=== PATIENT | male | born 1955 | race Caucasian/White ===

== ENCOUNTER → 2016-09-26 | Outpatient (CLI) | payer BC ==
[~2016-09-26] MED LIST: ASPI81TA28 PO; ATOR10TA88 PO; ATV/1 PO; CETI10TA84 PO; CYCL10TA6 PO; DICL-201 PO; HYDR-5688 PO; IBUP-1050 PO; KETO10TA PO; LOSA50TA54 PO; NAPR-1169 PO; OXYC-57 PO
--- NOTE | 2016-09-26 10:40 | DIAGNOSTIC IMAGING REPORT ---
MRI OF THE LEFT KNEE CLINICAL HISTORY: Left knee pain. COMPARISON STUDY: No priors. TECHNIQUE: MRI of the left. knee was performed utilizing proton density, T1, and T2-weighted sequences in the axial, sagittal, coronal planes. IV contrast was not administered for this examination. Note that interpretation is suboptimal without plain film correlate. FINDINGS: Menisci: There is extensive degenerative tearing/maceration involving the body and posterior horn of the medial meniscus. The medial meniscus is slightly extruded. No flipped fragment is identified. The lateral meniscus is intact. Ligaments: The anterior and posterior cruciate ligaments are intact. The medial and lateral collateral ligaments are within normal limits. Extensor mechanism: The extensor mechanism is intact. Hoffa's fat pad is normal in appearance. There is nonspecific edema within the suprapatellar fat pad. Articular cartilage and bone: There is mild (less than 50%) degenerative thinning of the articular cartilage along the weightbearing surface in the medial compartment. No full-thickness cartilage loss is identified. Reactive marrow edema seen peripherally within the medial femoral condyle and the medial tibial plateau. The articular cartilage within the lateral compartment appears maintained. There is moderate chondromalacia patella, with near complete cartilage loss at the patellar apex and along the lateral patellar facet. There is mild reactive marrow edema within the lateral patellar facet with small foci of subchondral cystic change. There is mild narrowing of the articular cartilage in the underlying femoral trochlea. Joint effusion: There is a small joint effusion. Soft tissues: The musculature surrounding the knee joint is normal in bulk and signal intensity. A pulsatile cyst measures approximately 5 cm. IMPRESSION: 1. Extensive degenerative tearing/maceration is seen involving the body and posterior horn of the medial meniscus. 2. There is mild degenerative thinning of the articular cartilage in the medial compartment with reactive marrow edema seen peripherally involving the medial tibial plateau and the medial femoral condyle. 3. Moderate chondromalacia patella. 4. Small joint effusion and popliteal cyst. 5. The cruciate ligaments, the collateral ligaments, and the lateral meniscus are intact. 6. There is nonspecific edema within the suprapatellar fat pad. This has been described in the quadriceps fat pad impingement syndrome. Clinical correlation will be required. Electronically signed by: Guru Durbin M.D. 09/26/2016 10:39 AM Dictated Date/Time: 09/26/2016 10:32 AM
== END | disposition home or self-care (01) ==
LOC: C.MRIBC 09:35
PROVIDERS: ATTEND Orthopaedic Surgery Sports Medicine
DX: M17.12 Unilateral primary osteoarthritis, left knee (principal); M22.42 Chondromalacia patellae, left knee

== ENCOUNTER → 2016-10-23 | Day surgery (SDC) | payer BC ==
[2016-10-11 14:00] VITALS: Ht 180.3 cm; Wt 88.6 kg
[~2016-10-23] VITALS: Ht 180.3 cm; Wt 88.6 kg
[~2016-10-23] MED LIST changes: +ATOR10TA82 PO; -ATOR10TA88 PO; +ATROPINE SULFATE 0.1 MG/ML 5ML SYR IV PRN; +CEFAZOLIN 2000 MG/60 ML D5W IV SCH; -CETI10TA84 PO; +CLINDAMYCIN 900 MG/106 ML D5W IV ONE; +CLINDAMYCIN 900MG IV SCH; +DEXAMETHASONE SOD INJ 4 MG/ML VIAL ONE; +EpHEDrine SULFATE INJ 50 MG/ML AMP IV PRN; +EpINEphrine INJ 1MG/ML AMP 1 MG/ML AMP ONE; +FENTANYL CITRATE INJ 50 MCG/1 ML 2 ML VIAL IV PRN; +FENTANYL CITRATE INJ 50 MCG/1 ML 2 ML VIAL ONE; -HYDR-5688 PO; +KETOROLAC TROMETHAMINE 30 MG/ML VIAL ONE; +LACTATED RINGER'S 1000ML 1,000 ML IV SCH; +LIDOCAINE HCL 2% 2 ML VIAL (20MG/ML) ONE; +MIDAZOLAM HCL 1 MG/ML 2ML VIAL ONE; +ONDANSETRON INJ 2 MG/ML 2 ML VIAL IV PRN; +ONDANSETRON INJ 2 MG/ML 2 ML VIAL ONE; +OXYCODONE/ACETAMINOPHEN 5-325 TAB PO PRN; +PROPOFOL IV EMULSION 10 MG/ML 20 ML VIAL IV ONE; +ROPIVACAINE 0.5% 5 MG/ML 30 ML VIAL ONE; +SODIUM CHLORIDE 0.9% 1000ML 1,000 ML IV SCH
--- NOTE | 2016-10-23 12:15 | History & Physical Bridge - SC ---
H&P Re-Evaluation Bridge Note: I have examined the patient, reviewed the History & Physical and in the interval since the performance of the History & Physical I have noted the following changes of clinical significance: No changes noted
--- NOTE | 2016-10-23 13:08 | [facility] Post Operative Brief Note ---
Immediate Operative Summary Operative Date Oct 23, 2016. Pre-Operative Diagnosis Left Knee Medial Meniscal Tear and Osteoarthritis Post-Operative Diagnosis Same Procedure(s) Performed Left Knee Arthroscopy, Partial Medial Meniscectomy, Chondroplasty of patella Surgeon Dr. Cortes Livestock [employer]cker Surgeon(s) Tahir Perla PA-C Estimated Blood Loss Minimal Findings Medial Meniscus Tear + DJD Specimens None Anesthesia General Complication(s) None Disposition Recovery Room / PACU
--- NOTE | 2016-10-23 13:09 | Discharge Instructions-SurgCtr ---
Discharge Instructions Date of Service Oct 23, 2016. Visit Reason for Visit: Left Knee Medial Meniscal Tear, Djd Discharge Discharge Diagnosis / Problem: left knee medial meniscus tear Discharge Goals Goal(s): Decrease discomfort, Improve function, Therapeutic intervention Activity Recommendations Activity Limitations: per Instructions/Follow-up section Weightbearing Status: Left weightbearing (as tolerated) Anesthesia . Post Anesthesia Instructions: If you have had General Anesthesia or IV Sedation: * Do not drive today. * Resume driving when surgeon permits. * Do not make important decisions or sign legal documents today. * Call surgeon for: 1. Temperature elevations greater than 101 degrees F. 2. Uncontrollable pain. 3. Excessive bleeding. 4. Persistent nausea and vomiting. 5. Medication intolerance (nausea, vomiting or rash). * For nausea and vomiting use only clear liquids such as: tea, soda, bouillon until nausea subsides, then gradually increase diet as tolerated. * If you have any concerns or questions, call your surgeon's office. If physician is unavailable and it is an emergency, call 911 or go to the nearest emergency room. . Instructions / Follow-Up Instructions / Follow-Up MEDICATIONS: * Resume previous medications unless instructed otherwise by your surgeon. * Always take pain medication on a full stomach or with food to avoid upset stomach. * Do not drink alcohol or drive while taking narcotics. * Tylenol may be taken if narcotic not needed. May restart diclofenac when finished taking toradol SPECIAL CARE INSTRUCTIONS: __ None _x_ Keep extremity elevated and iced x 48 hours; apply ice 20-30 minutes 8-10 times/day. May remove at night. __ Crutches __ May discard when able __ Brace/Post-op shoe __ 24 hrs/day __ Remove at night _x_ Dressing __ Maintain until seen in office, may shower with plastic over site x__ Remove dressings in 24-48 hours and then may shower x__ Cover incisions with band-aids after showering __ Do not remove steri-strips Call physician if chills or temperature rises above 102 degrees or pain unrelieved by prescribed pain medications. Office [phone] follow up in 2 weeks Diet Recommendations Home Diet: resume previous diet Procedures Procedures Performed: Left Knee Arthroscopy, Partial Medial Meniscectomy, Chondroplasty Pending Studies Studies pending at discharge: no Medical Emergencies . Who to Call and When: Medical Emergencies: If at any time you feel your situation is an emergency, please call 911 immediately. . Non-Emergent Contact Non-Emergency issues call your: Surgeon . . "Provider Documentation" section prepared by Zev Perla.
[2016-10-23 13:36] VITALS: TEMP 36.3
--- NOTE | 2016-10-23 13:48 | Anesthesia Progress Nt - [facility] ---
Anesthesia Post Op Note Date & Time Oct 23, 2016 at 13:48 Vital Signs Pain Intensity: 2 Vital Signs Past 12 Hours Date Time Temp Pulse Resp B/P Pulse Ox O2 Delivery O2 Flow Rate FiO2 10/23/16 13:36 36.3 65 18 139/87 95 Room Air 10/23/16 13:30 135/90 10/23/16 13:29 65 15 94 10/23/16 13:29 36.7 95 Room Air 10/23/16 13:29 65 15 10/23/16 13:25 140/81 10/23/16 13:24 68 20 95 10/23/16 13:24 68 20 10/23/16 13:20 139/93 10/23/16 13:19 71 15 94 10/23/16 13:19 72 15 10/23/16 13:15 135/91 10/23/16 13:14 69 12 10/23/16 13:14 68 12 97 10/23/16 13:10 126/88 10/23/16 13:09 62 15 97 10/23/16 13:09 62 15 10/23/16 13:05 117/69 10/23/16 13:04 37.0 64 18 117/69 97 Mask 7 10/23/16 13:04 63 108/65 95 10/23/16 13:04 63 10/23/16 11:22 37.0 83 16 154/105 97 Room Air Notes Mental Status: alert / awake / arousable, participated in evaluation Pt Amnestic to Procedure: Yes Nausea / Vomiting: adequately controlled Pain: adequately controlled Airway Patency, RR, SpO2: stable & adequate BP & HR: stable & adequate Hydration State: stable & adequate Anesthetic Complications: no major complications apparent
[2016-10-23 14:17] VITALS: BP 154/79; PULSE 72; O2SAT 96
--- NOTE | 2016-10-23 14:40 | OPERATIVE REPORT ---
DATE OF OPERATION: 10/23/2016 SURGEON: Zaki Cortes MD SENIOR ELECTRICAL ESTIMATOR: SKYE Ritchie PREOPERATIVE DIAGNOSES: 1. Left knee degenerative medial meniscus tear. 2. Left knee degenerative joint disease. POSTOPERATIVE DIAGNOSES: 1. Left knee degenerative medial meniscus tear. 2. 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 PROCEDURES PERFORMED: 1. Left knee exam under anesthesia. 2. Left knee diagnostic arthroscopy. 3. Left knee arthroscopic partial medial meniscectomy. 4. Left knee chondroplasty of the patella. COMPLICATIONS: None. ESTIMATED BLOOD LOSS: Minimal. TOURNIQUET TIME: 19 minutes at 300 mmHg. ANESTHESIA: General. OPERATIVE INDICATIONS: The patient is a 61-year-old gentleman who has a 6-month history of left knee pain and discomfort. He has been through extensive conservative treatment including multiple injections, therapy and anti-inflammatories without adequate relief. He was not able to get back to his lifestyle. X-ray showed a fairly minimal DJD. He had an MRI, which revealed medial meniscus tear. The patient elected to proceed with operative treatment. OPERATIVE FINDINGS: Examination under anesthesia of the left knee revealed just a trace knee effusion. His range of motion was full extension to 135 degrees of flexion. He had no instability. Exam in the Emergency Room is positive for mechanical symptoms. ARTHROSCOPIC FINDINGS: Arthroscopic findings revealed just a trace knee effusion. He did have fairly extensive degenerative changes of the undersurface of patella with grade 4 changes. He had some grade 3 changes of the trochlea. In the intercondylar notch, the ACL and PCL were intact. In the medial compartment, there was a complex degenerative tear of the posterior horn of the medial meniscus. The articular surface revealed some age-related changes. In the lateral compartment, there was some fraying of the inner rim of the lateral meniscus. There were some age-related changes to the cartilage. OPERATIVE PROCEDURE: The patient was taken to the operating room, identified and placed on the operating table in supine position. All contact areas were appropriately padded. IV antibiotics were provided by anesthesia team. A general anesthetic was implemented by anesthesia team. Left thigh tourniquet was then placed. The left lower extremity was then examined under anesthesia with the findings as described above. The left leg was then prepped and draped in the usual sterile fashion. The left leg was elevated and exsanguinated with Esmarch and tourniquet was placed at 300 mmHg. Routine left knee arthroscopy was then performed through typical anteromedial and anterolateral portals. Supralateral outflow portal was established for outflow. Attention then drawn to medial compartment. With the use of motorized and hand controlled instruments, a partial medial meniscectomy was then performed. We resected this back to a stable rim. The arthroscopic instruments were placed in the lateral compartment. I did use the shaver to debride some inner rim of the lateral meniscus. It was a fairly minimal debridement. Attention was then drawn to the patella. With the use of shaver, the undersurface of the patella was debrided back to stable tissue. We also debrided some of the trochlea. Once this was complete, the arthroscopic instruments were placed throughout the knee joint. All extraneous debris was removed. The arthroscopic instruments were then removed from the joint and the portals were closed with 3-0 Prolene suture in a horizontal mattress fashion. The knee was injected with 30 mL of 0.5% ropivacaine with epinephrine. A sterile dressing with Xeroform, 4 x 4's, sterile cast padding and Warren bandage were applied. The tourniquet was then let down for a final tourniquet time of 19 minutes. The patient was then brought out of general anesthesia and transferred to the recovery room in stable condition. The patient tolerated the procedure well with no complications. All needle and sponge counts were correct at the end of the operation. I attest to the content of the Intraoperative Record and any orders documented therein. Any exceptions are noted below. RICHARD
== END | disposition home or self-care (01) ==
LOC: X.SURG 11:12
PROVIDERS: ATTEND Orthopaedic Surgery Sports Medicine
DX: M23.222 Derangement of posterior horn of medial meniscus due to old tear or injury, left knee (principal); I10 Essential (primary) hypertension

== ENCOUNTER 2017-01-14 12:57 | Emergency (ER) | payer BC ==
[~2017-01-14] VITALS: Ht 180.3 cm; Wt 91.0 kg
[~2017-01-14 12:57] MED LIST changes: -ATROPINE SULFATE 0.1 MG/ML 5ML SYR IV PRN; -CEFAZOLIN 2000 MG/60 ML D5W IV SCH; -CLINDAMYCIN 900 MG/106 ML D5W IV ONE; -CLINDAMYCIN 900MG IV SCH; -CYCL10TA6 PO; -DEXAMETHASONE SOD INJ 4 MG/ML VIAL ONE; -DICL-201 PO; -EpHEDrine SULFATE INJ 50 MG/ML AMP IV PRN; -EpINEphrine INJ 1MG/ML AMP 1 MG/ML AMP ONE; -FENTANYL CITRATE INJ 50 MCG/1 ML 2 ML VIAL IV PRN; -FENTANYL CITRATE INJ 50 MCG/1 ML 2 ML VIAL ONE; -IBUP-1050 PO; -KETO10TA PO; -KETOROLAC TROMETHAMINE 30 MG/ML VIAL ONE; -LACTATED RINGER'S 1000ML 1,000 ML IV SCH; -LIDOCAINE HCL 2% 2 ML VIAL (20MG/ML) ONE; -MIDAZOLAM HCL 1 MG/ML 2ML VIAL ONE; -NAPR-1169 PO; -ONDANSETRON INJ 2 MG/ML 2 ML VIAL IV PRN; -ONDANSETRON INJ 2 MG/ML 2 ML VIAL ONE; -OXYCODONE/ACETAMINOPHEN 5-325 TAB PO PRN; -PROPOFOL IV EMULSION 10 MG/ML 20 ML VIAL IV ONE; -ROPIVACAINE 0.5% 5 MG/ML 30 ML VIAL ONE; -SODIUM CHLORIDE 0.9% 1000ML 1,000 ML IV SCH
[2017-01-14 12:59] VITALS: TEMP 36.6; Ht 180.3 cm; Wt 91.0 kg
[2017-01-14] MEDS ORDERED: OXYC-57 PO (13:48)
[2017-01-14] MEDS ORDERED: CYCL10TA6 PO (13:48)
[2017-01-14] MEDS ORDERED: NAPR-1169 PO (13:48)
--- NOTE | 2017-01-14 13:49 | EMERGENCY ROOM VISIT NOTE ---
History First contact with patient: 13:11 Chief Complaint: BACK PAIN Stated Complaint: LOWER L BACK PAIN History of Present Illness The patient is a 61 year old male who presents to the Emergency Room with complaints of left lower back pain which has been intermittent for the past few weeks. 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 He states that this improved with a few days of rest, but worsened when he returned to working. He states that the pain is located in the left side of the spine. He states it is a dull constant pain but becomes more intense at times. He rates his current discomfort a 6/ 10. He did take a few oxycodone which she had from a previous knee surgery as well as some ibuprofen with slight relief of the pain. He has a history of degenerative disc disease and states that in the past, he has had physical therapy with relief. The patient denies radiation of the pain into the legs, numbness, weakness or bowel/bladder incontinence. Review of Systems A complete 6 point review of systems was reviewed with the patient with pertinent positives and negatives as per history of present illness. All else were negative. Social History Smoking Status: Never Smoker Current/Historical Medications Scheduled Aspirin (Aspirin Ec), 81 MG PO QAM Atorvastatin (Lipitor), 10 MG PO QAM Cyclobenzaprine Hcl (Flexeril), 10 MG PO TID Losartan Potassium (Cozaar), 50 MG PO QAM Naproxen (Naprosyn), 500 MG PO BID Scheduled PRN Ibuprofen (Advil), 200-600 MG PO Q4H PRN for Pain Lorazepam (Ativan), 1 MG PO HS PRN for Sleep Oxycodone/Acetaminophen 5MG/325MG (Percocet 5MG/325MG), 1-2 TABLETS PO Q6 PRN for Pain Oxycodone/Acetaminophen 5MG/325MG (Percocet 5MG/325MG), 1-2 TABS PO Q6H PRN for Pain Allergies Coded Allergies: Penicillins (Verified Allergy, Severe, ANAPHYLAXIS, 01/14/17) Sulfa Antibiotics (Verified Allergy, Intermediate, rash, 01/14/17) Zolpidem (Verified Adverse Reaction, Unknown, PANIC ATTACKS, 01/14/17) Physical Exam Vital Signs Date Time Temp Pulse Resp B/P (MAP) Pulse Ox O2 Delivery O2 Flow Rate FiO2 01/14/17 14:16 76 20 138/78 97 01/14/17 12:59 36.6 98 16 172/101 96 Room Air Physical Exam VITALS: Vitals are noted on the nurse's note and reviewed by myself. No abnormalities noted. GENERAL: This is a 61-year-old male, in no acute distress, nondiaphoretic, well- developed well-nourished. SKIN: The skin was without rashes. HEART: Regular rate and rhythm without murmurs gallops or rubs. LUNGS: Clear to auscultation bilaterally without wheezes, rales or rhonchi. ABDOMEN: Soft, nontender. MUSCULOSKELETAL: No muscle atrophy, erythema, or edema noted of the back. There is no tenderness over the lumbar spinous processes. There is mild tenderness over the left lumbar paraspinous muscles. There is no tenderness over the thoracic spine or paraspinous muscles. There are XX muscle spasms present. The patient has full range of motion of the spine. Negative straight leg raise test. NEURO: Patient was alert and oriented to person place and time. Normal sensation to light and sharp touch. Deep tendon reflexes 2+ in the lower extremities. Dorsalis pedis pulse 2+ bilaterally. Heel and toe walking is normal. Medical Decision & Procedures Medical Decision Differential diagnosis includes cauda equina syndrome, cord compression, disc herniation, muscle spasm, lumbar strain, epidural abscess, malignancy, transverse myelitis, urinary tract infection, colitis, diverticulitis, kidney stone, among others. The patient is a 61-year-old male who presents today complaining of left lower back pain. Physical exam is consistent with a muscular strain. I do not feel that imaging is necessary at this time. There is nothing to suggest cauda equina syndrome or cord compression. The patient will be prescribed Naprosyn. He will be given Flexeril and pain medication for symptomatic relief. I had an extensive discussion with the patient regarding conservative measures that he can take to help with his back pain. He was instructed to follow-up with his primary care provider. He has had physical therapy in the past with good relief and may need to follow-up with them again. The patient verbalized understanding and was discharged home in good condition. Medication reconciliation: I attest that I have personally reviewed the patient 's current medication list. Blood Pressure Screening: Patient was found to have a slightly elevated blood pressure due to circumstances. I do not believe that the patient requires hypertension monitoring. [place] Drug Monitoring Program Search Results: patient reviewed within database, no issues identified Impression Primary Impression: Strain of lumbar region Departure Information Dispostion Home / Self-Care Condition GOOD Prescriptions Naproxen (Naprosyn) 500 Mg Tab 500 MG PO BID for 7 Days, #14 TAB Prov: Priscilla Poole PA-C 01/14/17 Cyclobenzaprine Hcl (FLEXERIL) 10 Mg Tab 10 MG PO TID for 3 Days, #9 TAB Prov: Priscilla Poole PA-C 01/14/17 Oxycodone/Acetaminophen 5MG/325MG (PERCOCET 5MG/325MG) Tab 1-2 TABS PO Q6H Y for Pain, #15 TAB For Initial Treatment Prov: Priscilla Poole PA-C 01/14/17 Referrals Suma Caldera D.O. (PCP) Patient Instructions My [facility] Additional Instructions You have been treated in the Emergency Department for Back Pain. You have been prescribed Percocet to be used for pain control. This is a narcotic medication. You cannot drive or consume alcohol while on this medicine. This medicine should only be used for pain that cannot be controlled with [id number] pain medicines. You have been prescribed Flexeril (cyclobenzaprine) 1-2 tabs orally, three times per day. Do NOT exceed 30 mg (6 tabs) per day. Take your first dose at bedtime as it can make you drowsy. Always take all medications as prescribed. Naprosyn as prescribed. Apply heating pad over the pack for symptomatic relief. You should schedule a follow-up appointment in 2-3 days with your Primary Care Provider for further evaluation and treatment of your back pain. Return to the Emergency Department if your current symptoms worsen despite treatment course outlined above, or if you develop any of the following symptoms : intractable pain despite aforementioned treatment course, loss of control of your bowel or bladder, numbness or tingling in your groin, or development of a fever. Problem Qualifiers Primary Impression: Strain of lumbar region Encounter type: initial encounter Qualified Codes: S39.012A - Strain of muscle, fascia and tendon of lower back, initial encounter
[2017-01-14] MEDS ORDERED: IBUP-1050 PO (13:53)
[2017-01-14 14:16] VITALS: BP 138/78; PULSE 76; O2SAT 97
== END 2017-01-14 14:18 | disposition home or self-care (01) ==
LOC: C.EDB 12:58 → C.EDD 14:18
DX: S39.012A Strain of muscle, fascia and tendon of lower back, initial encounter (principal); Y93.89 Activity, other specified; Y92.79 Other farm location as the place of occurrence of the external cause